=== PATIENT | male | born 2000 | race Two or more races ===

== ENCOUNTER 2020-05-04 16:26 | Emergency (ER) | payer OTHER ==
[~2020-05-04] VITALS: Ht 157.5 cm; Wt 56.2 kg
[2020-05-04] MEDS ORDERED: TDAP [DIPH/PERTUSSIS/TET] 0.5 ML VIAL IM ONE ×2 (16:30→17:28)
[2020-05-04 16:33] VITALS: BP 144/88
[2020-05-04] MEDS ORDERED: ACETAMINOPHEN 325 MG TABLET ONE (17:27)
[2020-05-04] MEDS ORDERED: ACETAMINOPHEN 325 MG TABLET PO ONE (17:30)
--- NOTE | 2020-05-04 17:39 | NUR ---
PT IS MEDICALLY CLEARED FOR BOOKING. PT IS RELEASED UNDER THE CARE OF TRISTAN. PT IS IN STABLE CONDITION. PT IS AMBULATORY ON STEADY GAIT W/O ASSIST
== END 2020-05-04 17:41 ==
LOC: ER 16:38
DX: S00.01XA Abrasion of scalp, initial encounter (principal); S09.8XXA Other specified injuries of head, initial encounter; F10.129 Alcohol abuse with intoxication, unspecified; R51.9 Headache, unspecified; Y90.9 Presence of alcohol in blood, level not specified; Z02.89 Encounter for other administrative examinations; W18.09XA Striking against other object with subsequent fall, initial encounter; Y93.89 Activity, other specified; Y92.89 Other specified places as the place of occurrence of the external cause; Y99.8 Other external cause status
CPT/HCPCS: 70450; 90471; 90715; 99284; A6403